=== PATIENT | female | born 1970 | race Caucasian/White ===

== ENCOUNTER → 2016-07-28 | Outpatient (CLI) | payer BC ==
--- NOTE | 2016-07-28 15:07 | MAMMOGRAPHY REPORT ---
BILATERAL DIGITAL SCREENING MAMMOGRAM TOMOSYNTHESIS WITH CAD: 07/28/2016 CLINICAL HISTORY: Routine screening. Patient has no complaints. TECHNIQUE: Breast tomosynthesis in addition to standard 2D mammography was performed. Current study was also evaluated with a Computer Aided Detection (CAD) system. COMPARISON: Comparison is made to exams dated: 02/20/2016 breast MRI, 07/21/2015 mammogram, 05/14/2015 m ammogram, 05/14/2015 MRI biopsy, 02/25/2015 mammogram, and 02/13/2015 breast MRI - [facility]. BREAST COMPOSITION: There are scattered areas of fibroglandular density in both breasts. FINDINGS: No suspicious masses, calcifications, or areas of architectural distortion are noted in e ither breast. There has been no significant interval change compared to prior exams. A biopsy marke r clip is again noted in the left 6:00 breast. Small oval circumscribed benign-appearing 7 mm mass in the left 12:00 breast is stable compared to prior exams and is compatible with a benign cyst, as seen on a prior MRI exam. IMPRESSION: ACR BI-RADS CATEGORY 2: BENIGN There is no mammographic evidence of malignancy. A 1 year screening mammogram is recommended. Also recommend follow-up bilateral breast MRI February 2017, as recommended on the prior 2015 MRI report . The patient will receive written notification of the results. Approximately 10% of breast cancers are not detected with mammography. A negative mammographic repor t should not delay biopsy if a clinically suggestive mass is present. Juanita Duarte M.D. /:07/28/2016 14:52:49 Tax Staff Accountant: Makayla Barth, [facility] letter sent: Normal 1/2 BI-RADS Code: ACR BI-RADS Category 2: Benign
== END | disposition home or self-care (01) ==
LOC: C.MAMM 08:46
PROVIDERS: ATTEND Family Medicine
DX: Z12.31 Encounter for screening mammogram for malignant neoplasm of breast (principal)

== ENCOUNTER → 2017-04-01 | Outpatient (CLI) | payer BC ==
--- NOTE | 2017-04-01 13:17 | DIAGNOSTIC IMAGING REPORT ---
L FOOT MIN 3 VIEWS HISTORY: 46 years-old Female LEFT FOOTPAIN acute left foot pain without reported trauma COMPARISON: None available TECHNIQUE: 3 views of the left foot FINDINGS: Note is made of a bipartite medial hallux sesamoid. Type I accessory navicular. No acute fracture, dislocation or significant degenerative changes. No stress fracture. Corticated fragment is noted adjacent to the anterior tibial plafond suggesting remote fracture or fragmented osteophyte on the oblique view. Moderate plantar enthesophyte of the calcaneus. Soft tissues are unremarkable. IMPRESSION: 1. No acute fracture or dislocation. 2. Moderate plantar enthesophyte of the calcaneus. The above report was generated using voice recognition software. It may contain grammatical, syntax or spelling errors. Electronically signed by: Delmar Olivas M.D. 04/01/2017 1:16 PM Dictated Date/Time: 04/01/2017 1:12 PM
== END | disposition home or self-care (01) ==
LOC: C.RDSM 15:34
PROVIDERS: ATTEND Family Medicine
DX: M79.672 Pain in left foot (principal); R93.7 Abnormal findings on diagnostic imaging of other parts of musculoskeletal system

== ENCOUNTER → 2017-08-01 | Outpatient (CLI) | payer OTHER ==
--- NOTE | 2017-08-01 14:50 | MAMMOGRAPHY REPORT ---
BILATERAL DIGITAL SCREENING MAMMOGRAM TOMOSYNTHESIS WITH CAD: 08/01/2017 CLINICAL HISTORY: Routine screening. Patient has no complaints. TECHNIQUE: Breast tomosynthesis in addition to standard 2D mammography was performed. Current study was also evaluated with a Computer Aided Detection (CAD) system. COMPARISON: Comparison is made to exams dated: 07/28/2016 mammogram, 07/21/2015 mammogram, 05/14/2015 ma mmogram, 02/20/2016 breast MRI, 05/14/2015 MRI biopsy, and 02/25/2015 ultrasound - [facility]. BREAST COMPOSITION: There are scattered areas of fibroglandular density in both breasts. FINDINGS: There is a circumscribed 7 mm mass in the 12:00 left breast, which appears similar in size dating back to prior mammograms from 2014, and also likely corresponds to a nonenhancing cyst in the 12:00 left breast on MRI. No new suspicious mass, architectural distortion or cluster of microcalcif ications is seen. IMPRESSION: ACR BI-RADS CATEGORY 1: NEGATIVE There is no mammographic evidence of malignancy. A 1 year screening mammogram is recommended. The pa tient will receive written notification of the results. Approximately 10% of breast cancers are not detected with mammography. A negative mammographic report should not delay biopsy if a clinically suggestive mass is present. Marina Devries M.D. ay/:08/01/2017 11:24:14 Tubing Drier: Justyna CHAMBERLAIN)(Ashu), [facility] letter sent: Normal 1/2 BI-RADS Code: ACR BI-RADS Category 1: Negative
== END | disposition home or self-care (01) ==
LOC: C.MAMM 08:43
PROVIDERS: ATTEND Family Medicine
DX: Z12.31 Encounter for screening mammogram for malignant neoplasm of breast (principal)

== ENCOUNTER 2017-08-23 20:35 | Emergency (ER) | payer OTHER ==
[~2017-08-23] VITALS: Ht 172.7 cm; Wt 74.2 kg
[2017-08-23 20:40] VITALS: BP 129/84; PULSE 102; TEMP 36.7; O2SAT 97; Ht 172.7 cm; Wt 74.2 kg
[2017-08-23] MEDS ORDERED: PROPARACAINE HCL 0.5% OP SOLN 15 ML BTL OP STA (20:58)
[2017-08-23] MEDS ORDERED: IBUP-1050 PO (21:07)
[2017-08-23] MEDS ORDERED: SERT50TA PO (21:07)
[2017-08-23] MEDS ORDERED: ASCO500C3 PO (21:07)
[2017-08-23] MEDS ORDERED: ERYTHROMYCIN OP OINT 5 MG/GM 3.5 GM TUBE OP STA (22:32)
[2017-08-23] MEDS ORDERED: OXYCODONE IR HOME PACK PO STA (22:40)
--- NOTE | 2017-08-23 22:42 | EMERGENCY ROOM VISIT NOTE ---
ED Visit Note First contact with patient: 20:43 CHIEF COMPLAINT: Right eye pain HISTORY OF PRESENT ILLNESS: This 46-year-old female patient presents to the emergency department, ambulatory, complaining of pain in the right eye which began at approximately 4:00 this evening. The patient was seen by the walk-in clinic prior to arrival in the emergency department for possible corneal abrasion. She states she was trimming bushes, when a twig hit her right eye. She states the walk-in clinic and thought they saw something on the pupil under fluorescent light, and were concerned for possible foreign body. There has been a constant moderate pain and irritation, redness and tearing in the eye. There is a mild blurring of vision at times and light bothers the eye. The vision has not been decreased over all. The patient does not wear contacts. The patient rates the pain as irritating and 6/10. The patient has not had previous injuries to this eye. Tetanus shot is up to date. REVIEW OF SYSTEMS: A 6 system review of systems was completed with positives and pertinent negatives listed in the HPI. ALLERGIES: None MEDICATIONS: Vitamin C, Zoloft, ibuprofen PMH: Skin allergy, anxiety, depression SOCIAL HISTORY: The patient lives locally with family. She denies drug, alcohol , tobacco use. PHYSICAL EXAM: Vital Signs: Reviewed Nurse's notes, vital signs stable. Visual acuity 20/20 (R), 20/50 (L). GENERAL: This is a 46-year-old white female, in no acute distress, but who is uncomfortable from the eye problem. Well- developed well-nourished. EYES: The pupils are equal round and reactive to light and accommodation. EOMs are full and without tenderness. There is discharge of clear tears from the right eye which is injected. There is no foreign body visible under the eyelid even after lid eversion. Funduscopic exam reveals no hemorrhages, papilledema, or other abnormalities. No foreign body was seen embedded in the cornea under slit lamp exam. The cornea was clear and no hyphema was seen. Fluorescein uptake was observed with ultraviolet light significant for a corneal abrasion with laceration and avulsion from the central axis division of the right eye crossing the limbus and extending into the sclera. Fluorescein stain was retained after flushing the eye with normal saline solution. EMERGENCY DEPARTMENT COURSE: I examined the patient. Alcaine 2 drops were placed in the patient's right eye. A slit lamp exam was performed as above. I discussed the case with Dr. Hooper prior to discharge due to the extensive laceration with abrasion and partial avulsion. He recommended antibiotic ointment and close follow-up tomorrow. He advised the patient to contact the office at 8:00am to schedule follow-up appointment. Erythromycin ointment was placed in the right eye, and the tube was sent home with the patient. The patient was given OxyIR to take at home if needed for severe breakthrough pain. Discharge instructions reviewed. The patient was discharged home in good condition. I attest that I have personally reviewed the patient's current medication list. Patient was found to have normal blood pressure on screening and does not require follow-up. Etiologies such as conjunctivitis, corneal abrasion, uveitis, foreign body, glaucoma, periorbital cellulitis, orbital cellulitis, abscess, trauma, as well as others were entertained. DIAGNOSIS: Corneal abrasion of the right eye, superficial corneal laceration of the right eye Current/Historical Medications Scheduled Ascorbic Acid (Vitamin C), 500 MG PO DAILY Sertraline (Zoloft), 50 MG PO DAILY Scheduled PRN Ibuprofen (Advil), 400-600 MG PO Q6H PRN for Pain Allergies Coded Allergies: No Known Allergies (Unverified , 08/23/17) Vital Signs Date Time Temp Pulse Resp B/P (MAP) Pulse Ox O2 Delivery O2 Flow Rate FiO2 08/23/17 20:40 36.7 102 18 129/84 97 Room Air Medications Administered Medications (Trade) Dose Ordered Sig/Joseline Route Start Time Stop Time Status Last Admin Dose Admin Erythromycin (Erythromycin Oph Oint) 1 appln NOW STAT OP 08/23/17 22:32 08/23/17 22:33 DC 08/23/17 22:32 1 APPLN Oxycodone HCl (Roxicodone Immediate Rel 5MG Home Pack) 1 homepack UD STAT PO 08/23/17 22:40 08/23/17 22:41 DC 08/23/17 22:40 1 HOMEPACK Departure Information Impression Primary Impression: Corneal abrasion, right Additional Impression: Superficial laceration of right cornea Dispostion Home / Self-Care Condition GOOD Referrals Kareen Sr M.D. (PCP) Riley Hooper M.D. Patient Instructions ED Eye Injury Corneal Abrasion, My [facility] Additional Instructions You have been treated in the Emergency Department today for your Corneal Abrasion. You have been prescribed OxyIR to be used for pain control. This is a narcotic medication. You cannot drive or consume alcohol while on this medicine. This medicine should only be used for pain that cannot be controlled with over-the- counter pain medicines. You have been prescribed Erythromycin Opthalmic ointment. This is an antibiotic ointment which will help prevent an infection from developing in your affected eye. You should apply a 1 cm ribbon of the ointment to the lower part of the affected eye up to 6 times per day for the next 10 days. For pain control, you can use the following [id number] medicines (if >12 yo): Ibuprofen(Motrin, Advil) may be used for fever or pain. Use 600mg every six hours as needed. Take with food. Avoid using more than 2400mg in a 24 hour period. Do not use 2400mg per day for more than three consecutive days without physician direction. Prolonged inappropriate use can lead to stomach upset or ulcers. (AND/OR) Acetaminophen(Tylenol) may be used for fever or pain. Use 1000mg every six hours as needed. Avoid using more than 3000mg in a 24 hour period. You should relax in a quiet, dark place for the rest of the day. You should wear sunglasses while outside for the next few days until your eyes are not as sensitive to the light. You should schedule a follow-up appointment tomorrow with your established Eye Doctor (Watch Train Inspector) for further evaluation and treatment of your Corneal Abrasion. Please call Dr. Hooper's office first thing tomorrow morning to let them know you were seen in the ED with phone call made to Dr. Hooper. Return to the Emergency Department if your current symptoms worsen despite treatment course outlined above, or if you develop any of the following symptoms : intractable pain, visual disturbances, loss of vision, increased redness, swelling, drainage, or if you develop a fever. Problem Qualifiers Primary Impression: Corneal abrasion, right Encounter type: initial encounter Qualified Codes: S05.01XA - Injury of conjunctiva and corneal abrasion without foreign body, right eye, initial encounter Additional Impression: Superficial laceration of right cornea Encounter type: initial encounter Qualified Codes: S05.01XA - Injury of conjunctiva and corneal abrasion without foreign body, right eye, initial encounter
== END 2017-08-23 22:51 | disposition home or self-care (01) ==
LOC: C.EDB 20:37 → C.EDD 22:51
DX: S05.01XA Injury of conjunctiva and corneal abrasion without foreign body, right eye, initial encounter (principal); W22.8XXA Striking against or struck by other objects, initial encounter; Y93.H9 Activity, other involving exterior property and land maintenance, building and construction; F41.9 Anxiety disorder, unspecified; F32.9 Major depressive disorder, single episode, unspecified